=== PATIENT | female | born 1995 | race African-American/Black ===

== ENCOUNTER 2022-08-23 20:36 | Emergency (ER) | payer MEDICAID ==
[~2022-08-23] VITALS: Ht 160 cm; Wt 73.3 kg
[2022-08-23 21:08] VITALS: BP 105/55
== END 2022-08-24 01:07 | disposition left against medical advice (07) ==
LOC: ER 20:36
DX: Z53.21 Procedure and treatment not carried out due to patient leaving prior to being seen by health care provider (principal)